=== PATIENT | female | born 1950 | race Caucasian/White ===

== ENCOUNTER 2025-01-19 01:53 | Emergency (ER) | payer MEDICARE ==
[~2025-01-19] VITALS: Ht 172.7 cm; Wt 83.9 kg
[2025-01-19] MEDS ORDERED: PRED50TA PO (02:17)
[2025-01-19] MEDS ORDERED: HYDR-3972 PO (02:17)
[2025-01-19] MEDS ORDERED: IBUP-1957 PO (02:17)
[2025-01-19] MEDS ORDERED: HYDROCODONE/APAP 5/325MG TABLET ONE (02:18)
[2025-01-19] MEDS ORDERED: predniSONE 20 MG TABLET ONE (02:18)
[2025-01-19] MEDS: predniSONE 50 MG TABLET PO ONE (02:23)
[2025-01-19] MEDS: HYDROCODONE/APAP 5/325MG TABLET PO ONE (02:23)
[2025-01-19 04:38] VITALS: BP 130/85; TEMP 98; O2SAT 99
== END 2025-01-19 04:39 | disposition home or self-care (01) ==
LOC: ER 02:01
DX: M54.6 Pain in thoracic spine (principal); M48.54XA Collapsed vertebra, not elsewhere classified, thoracic region, initial encounter for fracture; I10 Essential (primary) hypertension; Z79.1 Long term (current) use of non-steroidal anti-inflammatories (NSAID); Z79.52 Long term (current) use of systemic steroids
CPT/HCPCS: 99283; J7512